=== PATIENT | male | born 2000 | race Two or more races ===

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

== ENCOUNTER 2022-01-19 21:37 | Emergency (ER) | payer MEDICAID ==
[~2022-01-19] VITALS: Ht 167.6 cm; Wt 81.6 kg
--- NOTE | 2022-01-19 21:48 | NUR ---
BIBS C/O "STABBING" LEFT SIDED CP RADIATING TO LEFT ARM X2DAYS." PATIENT ALERT AND ORIENTED X3. AMBULATORY WITH NON LABORED BREATHING.
--- NOTE | 2022-01-19 22:13 | NUR ---
XRAY AT BEDSIDE
[2022-01-19] MEDS ORDERED: IBUPROFEN 400 MG TABLET ONE (22:46)
[2022-01-19] MEDS ORDERED: IBUPROFEN 400 MG TABLET PO ONE (23:00)
[2022-01-19] MEDS ORDERED: IBUP-1953 PO (23:04)
[2022-01-19 23:21] VITALS: BP 144/79
== END 2022-01-19 23:21 | disposition home or self-care (01) ==
LOC: ER 21:39
DX: R07.89 Other chest pain (principal); Z60.2 Problems related to living alone
CPT/HCPCS: 71045-TC